=== PATIENT | female | born 1955 | race Caucasian/White ===

== ENCOUNTER 2020-04-08 10:36 | Inpatient (IN) | payer MEDICARE, OTHER ==
[~2020-04-08] VITALS: Ht 157.5 cm; Wt 64.4 kg
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
[2020-04-08] MEDS ORDERED: MAGNESIUM HYDROXIDE 30 ML UDC PO PRN (11:00)
[2020-04-08] MEDS ORDERED: BLOOD SUGAR DIAGNOSTIC 1 EACH STRIP IN ONE (11:00)
[2020-04-08] MEDS ORDERED: ACETAMINOPHEN 325 MG TABLET PO PRN (11:00)
[2020-04-08] MEDS ORDERED: MAG HYDROX/AL HYDROX/SIMETH 30 ML UDC PO PRN (11:00)
[2020-04-08] MEDS ORDERED: DONE10TA44 PO (11:12)
[2020-04-08] MEDS ORDERED: ASPI-1420 PO (11:12)
[2020-04-08] MEDS ORDERED: ATOR40TA PO (11:12)
[2020-04-08] MEDS ORDERED: VALS160T29 PO (11:12)
[2020-04-08] MEDS ORDERED: MEMA28CA5 PO (11:12)
[2020-04-08] MEDS ORDERED: PHEN100C12 PO (11:12)
[2020-04-08] MEDS ORDERED: LEVO50TA8 PO (11:12)
[2020-04-08] MEDS ORDERED: LEVE100023 PO (11:12)
[2020-04-08 11:32] VITALS: BP 159/79
[2020-04-08] MEDS ORDERED: VALSARTAN 40 MG TABLET PO SCH (14:30)
[2020-04-08] MEDS: DONEPEZIL 5 MG TABLET PO SCH (14:57)
[2020-04-08] MEDS: ASPIRIN EC 81 MG TABLET.DR PO SCH (14:58)
[2020-04-08] MEDS: LEVETIRACETAM (250 MG) 250 MG TABLET PO SCH ×2 (14:58→22:03)
[2020-04-08] MEDS: LEVOTHYROXINE SODIUM 50 MCG TABLET PO SCH (14:58)
[2020-04-08] MEDS: VALSARTAN 80 MG TABLET PO SCH (15:05)
[2020-04-08 15:28] LABS: CHOLESTEROL 180 mg/dL (<200); HDL CHOLESTEROL 101 mg/dL (40-60); LDL 60 mg/dL (0-99); TRIGLYCERIDES 76 mg/dL (30-150)
[2020-04-08 16:00] VITALS: BP 104/67
[2020-04-08] MEDS: risperiDONE 0.25 MG TABLET PO SCH (17:31)
[2020-04-08] MEDS: MEMANTINE HCL 5 MG TABLET PO SCH (17:31)
[2020-04-08] MEDS: PHENYTOIN EXTENDED RELEASE 100 MG CAPSULE PO SCH (17:31)
[2020-04-08 20:08] VITALS: BP 110/64
[2020-04-08] MEDS ORDERED: MIRTAZAPINE 15 MG TABLET PO SCH (22:00)
[2020-04-08] MEDS: ATORVASTATIN 40 MG TABLET PO SCH (22:03)
[2020-04-08] MEDS: TEMAZEPAM 7.5 MG CAPSULE PO PRN (22:45)
[2020-04-09] MEDS ORDERED: Z GUARD REMEDY 2 OZ OINT TP PRN (01:30)
--- NOTE | 2020-04-09 05:52 | NUR ---
GPS RN NOTE: PT NEEDS A UA BUT UNABLE TO GIVE URINE SAMPLE AT THIS TIME. WILL ENDORSE TO AM SHIFT.
[2020-04-09 06:27] LABS: BASOPHILS % (AUTO) 0.7 % (0.0-2.0); EOSINOPHILS % (AUTO) 6.1 % (0.0-6.0); HEMATOCRIT 39 % (33-45); HEMOGLOBIN 12.8 g/dL (11.5-14.8); LYMPHOCYTES # (AUTO) 1.1 /CMM (0.8-4.8); LYMPHOCYTES % (AUTO) 29.6 % (20.0-44.0); MEAN CORPUSCULAR HGB CONC 33 g/dl (31.0-36.0); MEAN CORPUSCULAR VOLUME 94 fL (82-100); MONOCYTES # (AUTO) 0.6 /CMM (0.1-1.30); MONOCYTES % (AUTO) 16.6 % (2.0-12.0); NEUTROPHILS # (AUTO) 1.7 /CMM (1.8-8.9); PLATELET COUNT (AUTO) 165 /CMM (150-450); RED BLOOD CELL COUNT(AUTO) 4.15 MIL/uL (4.0-5.2); WHITE BLOOD COUNT (AUTO) 3.7 K/uL (4.3-11.0)
[2020-04-09 06:46] LABS: BILIRUBIN,TOTAL 0.4 mg/dL (0.2-1.0); CALCIUM, SERUM 8.7 mg/dL (8.5-10.1); CREATININE 0.7 mg/dL (0.6-1.3); MAGNESIUM 2.5 mg/dL (1.8-2.4); PHOSPHORUS 3.4 mg/dL (2.5-4.9); POTASSIUM 3.7 mmol/L (3.5-5.1); TOTAL PROTEIN, SERUM 6.5 g/dL (6.4-8.2)
--- NOTE | 2020-04-09 06:55 | NUR ---
GPS RN CLOSING NOTE: PT SLEEPING COMFORTABLY ON BED, NO S/S OF DISTRESS. RESPIRATION EVEN AND UNLABORED WITH EQUAL RISE AND FALL OF THE CHEST. UNABLE TO GET PT URINE SAMPLE FOR UA AT THIS TIME. WILL CONTINUE TO MONITOR AND ENDORSE TO AM SHIFT.
[2020-04-09 06:58] LABS: PHENYTOIN (DILANTIN) 2.9 ug/ml (10.0-20.0)
[2020-04-09 07:00] LABS: THYROID STIMULATING HORMONE 2.392 uIU/mL (0.358-3.74)
[2020-04-09 08:00] VITALS: BP 122/71
[2020-04-09] MEDS: LEVOTHYROXINE SODIUM 50 MCG TABLET PO SCH (08:13)
[2020-04-09] MEDS: PHENYTOIN EXTENDED RELEASE 100 MG CAPSULE PO SCH ×2 (08:32→16:26)
[2020-04-09] MEDS: ASPIRIN EC 81 MG TABLET.DR PO SCH (08:32)
[2020-04-09] MEDS: VALSARTAN 80 MG TABLET PO SCH (08:33)
[2020-04-09] MEDS: DONEPEZIL 5 MG TABLET PO SCH (08:34)
[2020-04-09] MEDS: risperiDONE 0.25 MG TABLET PO SCH ×2 (08:34→16:26)
[2020-04-09] MEDS: LEVETIRACETAM (250 MG) 250 MG TABLET PO SCH ×2 (08:34→21:42)
[2020-04-09] MEDS: MEMANTINE HCL 5 MG TABLET PO SCH ×2 (08:34→16:30)
[2020-04-09 09:07] LABS: BAND % (MANUAL) 7 % (0.0-5.0); EOSINOPHILS % (MANUAL) 7 % (0-4); LYMPHOCYTES % (MANUAL) 27 % (16-48); MONOCYTES % (MANUAL) 15 % (0-11.0); NEUTROPHILS % (MANUAL) 44 (42-76)
[2020-04-09] MEDS: Z GUARD REMEDY 2 OZ OINT TP SCH (09:34)
[2020-04-09 16:00] VITALS: BP 119/65
[2020-04-09 19:16] LABS: APPEARANCE,URINE CLEAR (CLEAR); BILIRUBIN,URINE NEGATIVE (NEGATIVE); BLOOD, URINE TRACE-INTA Ery/uL (NEGATIVE); COLOR,URINE YELLOW (YELLOW); KETONES,URINE TRACE (NEGATIVE); LEUKOCYTE ESTERASE ,URINE TRACE (NEGATIVE); NITRITE, URINE NEGATIVE (NEGATIVE); PH,URINE 5.5 (5.0-8.0); PROTEIN,URINE TRACE mg/dl (NEGATIVE); UGLUCOSE NEGATIVE (NEGATIVE); UROBILINOGEN,URINE 0.2 EU/dL (0.2)
[2020-04-09 19:30] LABS: BACTERIA,URINE 3+ /HPF (None Seen); SQUAMOUS EPITHELIAL CELL,UR 0-2 /HPF (None Seen)
[2020-04-09 20:00] VITALS: BP 126/65
[2020-04-09] MEDS: ATORVASTATIN 40 MG TABLET PO SCH (21:42)
[2020-04-10 08:00] VITALS: BP 132/72
[2020-04-10] MEDS: ASPIRIN EC 81 MG TABLET.DR PO SCH (09:45)
[2020-04-10] MEDS: risperiDONE 0.25 MG TABLET PO SCH ×2 (09:46→17:00)
[2020-04-10] MEDS: PHENYTOIN EXTENDED RELEASE 100 MG CAPSULE PO SCH ×2 (09:46→17:00)
[2020-04-10] MEDS: DONEPEZIL 5 MG TABLET PO SCH (09:46)
[2020-04-10] MEDS: LEVETIRACETAM (250 MG) 250 MG TABLET PO SCH ×2 (09:46→21:34)
[2020-04-10] MEDS: MEMANTINE HCL 5 MG TABLET PO SCH ×2 (09:46→17:00)
[2020-04-10] MEDS: Z GUARD REMEDY 2 OZ OINT TP SCH (09:47)
[2020-04-10] MEDS: VALSARTAN 80 MG TABLET PO SCH (09:47)
[2020-04-10] MEDS: LEVOTHYROXINE SODIUM 50 MCG TABLET PO SCH (09:47)
--- NOTE | 2020-04-10 11:57 | NUR ---
WOUND CARE CONSULT: PT REFUSED SKIN ASSESSMENT AND DENIES HAVING ANY SKIN ISSUES. PER RN, PT IS AMBULATORY AND CONTINENT WITH CURRENT CRUZ SCORE OF 19. WILL SEE PRN.
[2020-04-10] MEDS: LORAZEPAM 0.5 MG TABLET PO PRN ×2 (14:48→20:09)
--- NOTE | 2020-04-10 15:40 | NUR ---
Initial Discharge Plan: Patient currently resides at home [address] [place] [address] ([phone]) lives with her , Ezequiel Jo. Patient would like tot return home upon discharge. SW spoke with pt's , Ezequiel ([phone]) who stated he would like patient to return home and will pick her up at time of discharge. BRANDEE will continue to work with patient, family, and MD to ensure a safe and proper discharge plan.
--- NOTE | 2020-04-10 15:40 | NUR ---
Family Contact: SW spoke with pt's , Ezequiel Jo ([phone]) and discussed treatment and discharge plan. Art stated that will cigar packer and picker the patient and take her home upon discharge. Ezequiel provide this clinical writer with the patient's primary doctor, Dr. Daron Santoro MD Address: [address] [place] [phone] ) and Home Health services [facility] Address: [address] [place] [phone] ). Pt needs a psychiatrist to follow up with after discharge.
[2020-04-10 16:00] VITALS: BP 127/82
--- NOTE | 2020-04-10 17:00 | NUR ---
Patient positive bacteria from urine and had LBM x 3 today, Dr. Garcia made aware, no new order at this time.
[2020-04-10 19:50] VITALS: BP 121/74
[2020-04-10] MEDS: ATORVASTATIN 40 MG TABLET PO SCH (21:34)
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
[2020-04-11 08:00] VITALS: BP 118/77
[2020-04-11] MEDS: LEVOTHYROXINE SODIUM 50 MCG TABLET PO SCH (08:02)
--- NOTE | 2020-04-11 08:48 | NUR ---
Family Contact: SW spoke with patient's daughterJerica ([phone]) regarding patient's treatment plan and length of stay.
[2020-04-11] MEDS: DONEPEZIL 5 MG TABLET PO SCH (09:38)
[2020-04-11] MEDS: risperiDONE 0.25 MG TABLET PO SCH ×3 (09:38→17:03)
[2020-04-11] MEDS: ASPIRIN EC 81 MG TABLET.DR PO SCH (09:38)
[2020-04-11] MEDS: PHENYTOIN EXTENDED RELEASE 100 MG CAPSULE PO SCH ×2 (09:38→17:03)
[2020-04-11] MEDS: LEVETIRACETAM (250 MG) 250 MG TABLET PO SCH ×2 (09:38→21:34)
[2020-04-11] MEDS: MEMANTINE HCL 5 MG TABLET PO SCH ×2 (09:39→17:03)
[2020-04-11] MEDS: VALSARTAN 80 MG TABLET PO SCH (09:39)
[2020-04-11 10:00] VITALS: BP 118/77
[2020-04-11] MEDS: Z GUARD REMEDY 2 OZ OINT TP SCH (10:12)
--- NOTE | 2020-04-11 11:30 | NUR ---
CLEAN CATCH URINE SAMPLE COLLECTED PER DR SMITH'S ORDER AND SEND TO LAB. WILL CONTINUE TO MONITOR
[2020-04-11 12:35] LABS: BASOPHILS % (AUTO) 0.5 % (0.0-2.0); EOSINOPHILS % (AUTO) 1.8 % (0.0-6.0); HEMATOCRIT 43 % (33-45); LYMPHOCYTES # (AUTO) 1.2 /CMM (0.8-4.8); MEAN CORPUSCULAR HGB CONC 32 g/dl (31.0-36.0); MEAN CORPUSCULAR VOLUME 95 fL (82-100); MONOCYTES # (AUTO) 0.9 /CMM (0.1-1.30); MONOCYTES % (AUTO) 16.3 % (2.0-12.0); NEUTROPHILS # (AUTO) 3.1 /CMM (1.8-8.9); NEUTROPHILS % (AUTO) 59.4 % (43.0-81.0); PLATELET COUNT (AUTO) 204 /CMM (150-450); RED BLOOD CELL COUNT(AUTO) 4.55 MIL/uL (4.0-5.2); WHITE BLOOD COUNT (AUTO) 5.3 K/uL (4.3-11.0)
[2020-04-11 12:51] LABS: ALBUMIN 3.8 g/dL (3.4-5.0); BILIRUBIN,TOTAL 0.4 mg/dL (0.2-1.0); CREATININE 0.7 mg/dL (0.6-1.3); MAGNESIUM 2.4 mg/dL (1.8-2.4); POTASSIUM 3.7 mmol/L (3.5-5.1); TOTAL PROTEIN, SERUM 7.8 g/dL (6.4-8.2)
[2020-04-11 13:14] LABS: APPEARANCE,URINE SL CLOUDY (CLEAR); BILIRUBIN,URINE NEGATIVE (NEGATIVE); BLOOD, URINE TRACE-INTA Ery/uL (NEGATIVE); COLOR,URINE DARK YELLO (YELLOW); KETONES,URINE NEGATIVE (NEGATIVE); LEUKOCYTE ESTERASE ,URINE NEGATIVE (NEGATIVE); NITRITE, URINE NEGATIVE (NEGATIVE); PROTEIN,URINE NEGATIVE (NEGATIVE); UGLUCOSE NEGATIVE (NEGATIVE); UROBILINOGEN,URINE 0.2 EU/dL (0.2)
[2020-04-11 13:23] LABS: BACTERIA,URINE Few /HPF (None Seen); RBC,URINE 0-2 /HPF (0-2); SQUAMOUS EPITHELIAL CELL,UR Rare /HPF (None Seen); WBC,URINE 0-2 /HPF (0-3)
[2020-04-11 16:00] VITALS: BP 106/63
--- NOTE | 2020-04-11 18:34 | NUR ---
GPS RN CLOSING NOTES PT AWAKE, SITTING IN DINNING ROOM AT THIS TIME. PT REMAINED STABLE THROUGHOUT SHIFT. PT KEPT CLEAN AND DRY. ALL CARE, NEEDS, MEDICATION AND TREATMENT ADMINISTERED ANTICIPATED PER ORDER. SAFETY PRECAUTION IN PLACE AND MAINTAINED AT ALL TIMES. BED IN LOWEST LOCKED POSITION, HOB ELEVATED, RAILS UP, CALL LIGHT WITHIN REACH. WILL ENDORSE TO COIL TAPER NURSE FOR JOSE
--- NOTE | 2020-04-11 19:12 | NUR ---
PER MD'S NOTE, REPEAT DILANTIN LEVEL IN 3-4 DAYS AFTER PT STARTS TAKING THE MED. DILANTIN LEVEL LAB ORDER IN PLACE FOR TOMORROW. WILL CONTINUE TO MONITOR AND CONTINUE WITH PLAN OF CARE
[2020-04-11 20:48] VITALS: BP 106/66
[2020-04-11] MEDS: ATORVASTATIN 40 MG TABLET PO SCH (21:34)
[2020-04-11] MEDS: LORAZEPAM 0.5 MG TABLET PO PRN (22:32)
--- NOTE | 2020-04-11 22:39 | NUR ---
GPS RN NOTE: ANXIETY PT WAS FEELING ANXIOUS, ADMINISTERED PRN ATIVAN @ 2232, WILL REASSESS AND CONTINUE TO MONITOR Q15 MIN FOR SAFETY AND BEHAVIOR.
[2020-04-12] MEDS ORDERED: OLANZAPINE 10 MG VIAL IM ONE (00:30)
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
[2020-04-12] MEDS: LEVOTHYROXINE SODIUM 50 MCG TABLET PO SCH (07:50)
[2020-04-12 08:00] VITALS: BP 114/80
[2020-04-12] MEDS: ASPIRIN EC 81 MG TABLET.DR PO SCH (09:28)
[2020-04-12] MEDS: risperiDONE 0.25 MG TABLET PO SCH ×3 (09:28→17:10)
[2020-04-12] MEDS: PHENYTOIN EXTENDED RELEASE 100 MG CAPSULE PO SCH ×2 (09:28→17:10)
[2020-04-12] MEDS: MEMANTINE HCL 5 MG TABLET PO SCH ×2 (09:28→17:10)
[2020-04-12] MEDS: DONEPEZIL 5 MG TABLET PO SCH (09:28)
[2020-04-12] MEDS: LEVETIRACETAM (250 MG) 250 MG TABLET PO SCH ×2 (09:28→20:56)
[2020-04-12] MEDS: Z GUARD REMEDY 2 OZ OINT TP SCH (09:29)
[2020-04-12] MEDS: VALSARTAN 80 MG TABLET PO SCH (09:29)
--- NOTE | 2020-04-12 09:35 | NUR ---
SW Brief Individual Counseling: fabric and textile factory worker met with patient to provide brief individual counseling. Patient presented with disorganized thought process and labile mood. fabric and textile factory worker prompted patient to express how she is feeling, however patient stared at this time field underwriter with a blunted affect and did not respond appropriately.
--- NOTE | 2020-04-12 12:04 | NUR ---
BRANDEE Coordination of Care: SW referred patient for outpatient psychiatric services with Dr. Arun Hancock MD [address] [address] ([phone]) and will make an appointment prior to discharge.
[2020-04-12 16:00] VITALS: BP_SYST 105; BP_SYST 94; BP_DIAS 59; BP_DIAS 61
[2020-04-12 20:32] VITALS: BP 95/57
[2020-04-12] MEDS: ATORVASTATIN 40 MG TABLET PO SCH (21:18)
[2020-04-12 22:00] VITALS: BP 110/70
[2020-04-13 07:52] VITALS: BP 133/66
[2020-04-13 08:00] VITALS: BP 133/66
[2020-04-13] MEDS: PHENYTOIN EXTENDED RELEASE 100 MG CAPSULE PO SCH ×2 (08:19→16:57)
[2020-04-13] MEDS: MEMANTINE HCL 5 MG TABLET PO SCH ×2 (08:19→16:57)
[2020-04-13] MEDS: VALSARTAN 80 MG TABLET PO SCH (08:19)
[2020-04-13] MEDS: LEVOTHYROXINE SODIUM 50 MCG TABLET PO SCH (08:19)
[2020-04-13] MEDS: ASPIRIN EC 81 MG TABLET.DR PO SCH (08:19)
[2020-04-13] MEDS: risperiDONE 0.25 MG TABLET PO SCH ×2 (08:20→12:30)
[2020-04-13] MEDS: DONEPEZIL 5 MG TABLET PO SCH (08:20)
[2020-04-13] MEDS: LEVETIRACETAM (250 MG) 250 MG TABLET PO SCH ×2 (08:20→21:15)
[2020-04-13] MEDS: Z GUARD REMEDY 2 OZ OINT TP SCH (08:35)
--- NOTE | 2020-04-13 13:20 | NUR ---
RAGHUCO: FOLLOWED UP PTStephie LAYTON WILL COME.
[2020-04-13 16:00] VITALS: BP 101/58
[2020-04-13 19:55] VITALS: BP 101/52
[2020-04-13] MEDS: ATORVASTATIN 40 MG TABLET PO SCH (21:15)
[2020-04-14] MEDS: LORAZEPAM 0.5 MG TABLET PO PRN (06:13)
--- NOTE | 2020-04-14 06:16 | NUR ---
GPS RN NOTE: ANXIETY PT WAS FEELING RESTLESS AND ANXIOUS REQUESTED SOMETHING FOR IT, ADMINISTERED ATIVAN PRN @0615. WILL REASSESS AND CONTINUE TO MONITOR Q15MIN FOR SAFETY AND BEHAVIOR.
[2020-04-14] MEDS: LEVOTHYROXINE SODIUM 50 MCG TABLET PO SCH (06:31)
[2020-04-14 08:00] VITALS: BP 115/72
[2020-04-14] MEDS: VALSARTAN 80 MG TABLET PO SCH (09:00)
[2020-04-14] MEDS ORDERED: risperiDONE 0.25 MG TABLET PO SCH (09:00)
[2020-04-14] MEDS: MEMANTINE HCL 5 MG TABLET PO SCH ×2 (09:40→17:57)
[2020-04-14] MEDS: LEVETIRACETAM (250 MG) 250 MG TABLET PO SCH ×2 (09:40→21:00)
[2020-04-14] MEDS: ASPIRIN EC 81 MG TABLET.DR PO SCH (09:40)
[2020-04-14] MEDS: DONEPEZIL 5 MG TABLET PO SCH (09:40)
[2020-04-14] MEDS: PHENYTOIN EXTENDED RELEASE 100 MG CAPSULE PO SCH ×2 (09:41→17:57)
--- NOTE | 2020-04-14 11:59 | NUR ---
Family Contact: SW spoke with patient's Art ([phone]) and confirmed discharge plan for Friday back home. Art stated he will medicinal plant picker the patient and take her home at 10AM.
[2020-04-14] MEDS: Z GUARD REMEDY 2 OZ OINT TP SCH (14:05)
[2020-04-14 16:00] VITALS: BP 110/66
--- NOTE | 2020-04-14 18:00 | NUR ---
needy and anxious,but med compliant.
[2020-04-14 19:32] VITALS: BP 114/64
[2020-04-14] MEDS: ATORVASTATIN 40 MG TABLET PO SCH (21:00)
[2020-04-14] MEDS: TEMAZEPAM 7.5 MG CAPSULE PO PRN (22:31)
--- NOTE | 2020-04-14 22:31 | NUR ---
GPS-RN NOTE: INSOMNIA PATIENT C/O UNABLE TO SLEEP. ADMINISTERED RESTORIL 7.5MG PO ORDERED. WILL REASSESS AND WILL CONTINUE TO MONITOR FOR SAFETY.
[2020-04-15] MEDS: LORAZEPAM 0.5 MG TABLET PO PRN (00:02)
--- NOTE | 2020-04-15 00:02 | NUR ---
GPS-RN NOTE: ANXIETY PATIENT IS ANXIOUS AND RESTLESS. ADMINISTERED ATIVAN 0.5MG PO ORDERED. WILL CONTINUE TO MONITOR FOR PATIENT'S SAFETY.
--- NOTE | 2020-04-15 04:06 | NUR ---
GPS-RN NOTE: C/O LOWER BACK PAIN PATIENT C/O LOWER BACK PAIN. PS 10/25. ADMINISTERED ACETAMINOPHEN 650MG PO ORDERED. WILL CONTINUE TO REASSESS.
[2020-04-15 08:00] VITALS: BP 123/78
[2020-04-15] MEDS: VALSARTAN 80 MG TABLET PO SCH (08:25)
[2020-04-15] MEDS: LEVOTHYROXINE SODIUM 50 MCG TABLET PO SCH (08:25)
[2020-04-15] MEDS: PHENYTOIN EXTENDED RELEASE 100 MG CAPSULE PO SCH ×2 (08:26→16:38)
[2020-04-15] MEDS: ASPIRIN EC 81 MG TABLET.DR PO SCH (08:26)
[2020-04-15] MEDS: MEMANTINE HCL 5 MG TABLET PO SCH ×2 (08:26→16:38)
[2020-04-15] MEDS: DONEPEZIL 5 MG TABLET PO SCH (08:26)
[2020-04-15] MEDS: LEVETIRACETAM (250 MG) 250 MG TABLET PO SCH ×2 (08:26→21:10)
[2020-04-15] MEDS: Z GUARD REMEDY 2 OZ OINT TP SCH (09:00)
[2020-04-15 16:00] VITALS: BP 136/61
[2020-04-15 20:29] VITALS: BP 112/69
[2020-04-15] MEDS: ATORVASTATIN 40 MG TABLET PO SCH (21:10)
[2020-04-15] MEDS: risperiDONE 0.25 MG TABLET PO SCH (21:10)
[2020-04-15] MEDS: TEMAZEPAM 7.5 MG CAPSULE PO PRN (22:16)
--- NOTE | 2020-04-15 22:36 | NUR ---
GPS RN NOTE: INSOMNIA PT STATED "I NEED SOMETHING TO KNOCK ME OUT I WANT TO GET GOOD SLEEP TONIGHT WHAT CAN I HAVE. ADMIN RESTORIL PRN @6512. WILL REASSESS AND CONTINUE TO MONITOR Q15MIN FOR SAFETY AND BEHAVIOR.
[2020-04-16] MEDS: LORAZEPAM 0.5 MG TABLET PO PRN (05:10)
--- NOTE | 2020-04-16 05:14 | NUR ---
GPS RN NOTE: ANXIETY PT WAS FEELING RESTLESS, ANXIOUS, INABILITY TO SIT STILL AND SLEEP. ASKED IF SHED LIKE AN ATIVAN SHE STATED "YEAH WHATEVER WILL HELP" ADMINISTERED ATIVAN PRN @0511. WILL REASSESS AND CONTINUE TO MONITOR Q15MIN FOR SAFETY AND BEHAVIOR.
[2020-04-16 08:00] VITALS: BP 112/63
[2020-04-16] MEDS: VALSARTAN 80 MG TABLET PO SCH (09:00)
[2020-04-16] MEDS: LEVOTHYROXINE SODIUM 50 MCG TABLET PO SCH (09:35)
[2020-04-16] MEDS: DONEPEZIL 5 MG TABLET PO SCH (09:35)
[2020-04-16] MEDS: MEMANTINE HCL 5 MG TABLET PO SCH ×2 (09:35→17:03)
[2020-04-16] MEDS: PHENYTOIN EXTENDED RELEASE 100 MG CAPSULE PO SCH ×2 (09:35→17:03)
[2020-04-16] MEDS: ASPIRIN EC 81 MG TABLET.DR PO SCH (09:35)
[2020-04-16] MEDS: LEVETIRACETAM (250 MG) 250 MG TABLET PO SCH ×2 (09:36→21:24)
[2020-04-16] MEDS: Z GUARD REMEDY 2 OZ OINT TP SCH (09:37)
[2020-04-16 16:00] VITALS: BP 137/67
[2020-04-16 20:36] VITALS: BP 101/57
[2020-04-16] MEDS: risperiDONE 0.25 MG TABLET PO SCH (21:24)
[2020-04-16] MEDS: ATORVASTATIN 40 MG TABLET PO SCH (21:24)
--- NOTE | 2020-04-17 07:30 | NUR ---
GPR RN NOTE RECEIVED PT IN BED. PT IS A/O X2. CALM, COOPERATIVE, ISOLATIVE, DEPRESSED, ANXIOUS. PT DENIES SI/HI AT THIS TIME. NO CARDIAC OR RESPIRATORY DISTRESS NOTED. NO SOB NOTED SATURATING WELL ON ROOM AIR. ENVIRONMENTAL CHECK WAS DONE, BED IN LOCKED AND LOWEST POSITION, SIDE RAILS UP X2. WILL CONTINUE TO MONITOR Q15MIN FOR SAFETY AND BEHAVIOR.
[2020-04-17 08:00] VITALS: BP 123/80
[2020-04-17] MEDS: ASPIRIN EC 81 MG TABLET.DR PO SCH (08:22)
[2020-04-17] MEDS: LEVETIRACETAM (250 MG) 250 MG TABLET PO SCH ×2 (08:22→21:10)
[2020-04-17] MEDS: VALSARTAN 80 MG TABLET PO SCH (08:22)
[2020-04-17] MEDS: LEVOTHYROXINE SODIUM 50 MCG TABLET PO SCH (08:23)
[2020-04-17] MEDS: MEMANTINE HCL 5 MG TABLET PO SCH ×2 (08:23→16:23)
[2020-04-17] MEDS: PHENYTOIN EXTENDED RELEASE 100 MG CAPSULE PO SCH ×2 (08:23→16:23)
[2020-04-17] MEDS: DONEPEZIL 5 MG TABLET PO SCH (08:25)
[2020-04-17] MEDS: Z GUARD REMEDY 2 OZ OINT TP SCH (08:25)
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
--- NOTE | 2020-04-17 09:41 | NUR ---
FAMILY CONTACT: SW spoke with patient's Art ([phone]) and confirmed discharge plan for Friday04/18/20 back home. Art stated he will orange picking supervisor the patient and take her home at 10AM.
--- NOTE | 2020-04-17 14:49 | NUR ---
COORDINATION OF CARE: SW contacted psychiatrist Dr. Raad Zacarias MD [address] [address] ([phone]) [address] [address] ([phone]) and scheduled a follow up appointment for 04/19/20 at 4:00pm.
--- NOTE | 2020-04-17 15:04 | NUR ---
COORDINATION OF CARE: SW contacted Automotive Tire Worker: Dr. Daron Santoro MD Address: [address] [place] [phone] ) and spoke with Dee Dee, receptionist/telephone operator who stated pt needs to personally call so a tele health appointment can be scheduled.
--- NOTE | 2020-04-17 15:10 | NUR ---
COORDINATION OF CARE: SW contacted Home Health services [facility] Address: [address] [place] [phone] ) to inform them of pts discharge on Friday04/18/20 back home.
[2020-04-17 16:00] VITALS: BP 103/53
--- NOTE | 2020-04-17 18:57 | NUR ---
GPS CLOSING NOTE PT IN BED. PT IS A/O X2. CALM, COOPERATIVE, ISOLATIVE, DEPRESSED, ANXIOUS. PT DENIES SI/HI AT THIS TIME. NO CARDIAC OR RESPIRATORY DISTRESS NOTED. NO SOB NOTED SATURATING WELL ON ROOM AIR. PT COMPLIANT WITH ALL MEDS TODAY. NO BEHAVIORAL ISSUES NOTED. CALM AND COOPERATIVE. ALL NEEDS MET AND ATTENDED.ENVIRONMENTAL CHECK WAS DONE, BED IN LOCKED AND LOWEST POSITION, SIDE RAILS UP X2. WILL CONTINUE TO MONITOR Q15MIN FOR SAFETY AND BEHAVIOR.
[2020-04-17 19:59] VITALS: BP 104/61
[2020-04-17] MEDS: ATORVASTATIN 40 MG TABLET PO SCH (21:10)
[2020-04-18] MEDS: TEMAZEPAM 7.5 MG CAPSULE PO PRN (01:08)
--- NOTE | 2020-04-18 01:11 | NUR ---
GPS RN NOTES: INSOMNIA UPON DOING ROUNDS MA YELLING OUT, "NURSE. NURSE." PT STATED SHE CAN NOT SLEEP. AND REQUESTED SLEEPING MEDICATION." OFFERED RESTORIL 7.5 MG PO PRN ORDERED. PT AGREED AND TOLERATED MEDICATION WELL. CONTINUE TO MONITOR.
[2020-04-18] MEDS: LEVOTHYROXINE SODIUM 50 MCG TABLET PO SCH (07:43)
[2020-04-18 08:00] VITALS: BP 112/77
[2020-04-18 08:04] VITALS: BP 121/74
[2020-04-18] MEDS: LEVETIRACETAM (250 MG) 250 MG TABLET PO SCH (08:04)
[2020-04-18] MEDS: VALSARTAN 80 MG TABLET PO SCH (08:04)
[2020-04-18] MEDS: MEMANTINE HCL 5 MG TABLET PO SCH (08:04)
[2020-04-18] MEDS: PHENYTOIN EXTENDED RELEASE 100 MG CAPSULE PO SCH (08:05)
[2020-04-18] MEDS: DONEPEZIL 5 MG TABLET PO SCH (08:05)
[2020-04-18] MEDS: ASPIRIN EC 81 MG TABLET.DR PO SCH (08:05)
[2020-04-18] MEDS: Z GUARD REMEDY 2 OZ OINT TP SCH (08:06)
--- NOTE | 2020-04-18 09:43 | NUR ---
DISCHARGE NOTE: Pt will be discharged at 10:00am via private vehicle home [address] [facility] [place] [address] ([phone]). Pt's , Ezequiel ([phone]) and patient's daughter, Jerica ([phone]) will pick pt up and transport home. Pts mood is euthymic with congruent affect. Pt denied visual/auditory hallucinations and denied suicidal/homicidal ideation. Pt is alert and oriented x1; only to self, pt is otherwise confused and disorganized. Pt is appropriately dressed and groomed. Pt will follow up with Psychiatrist: Dr. Raad Zacarias [address] [address] ([phone]) follow up appointment for 04/19/20 at 4:00pm. BRANDEE contacted Casting Machine Control Board Operator: Dr. Daron Santoro MD Address: [address] [place] [address] ) and spoke with Dee Dee, studio receptionist who stated pt needs to personally call so a tele health appointment can be scheduled. BRANDEE contacted Home Health services [facility] Address: [address] [place] [address] ) to inform them of pts discharge on Friday04/18/20 back home. The multidisciplinary exit care form was done, printed, signed, and given to the patient.
--- NOTE | 2020-04-18 12:37 | NUR ---
GPS/RN - Discharge Note Frannie Jo is a 64 year old female, discharged home in stable condition. Reviewed discharge instructions with Ezequiel and daughter Jerica both verbalized full understanding. Family was advised to have patient follow up with her PMD and psychiatrist as scheduled. Patient is compliant with medications, cooperative with treatment plans. Patient is alert and oriented x 1, confused, disoriented, calm, denies pain, not in any form of distress, afebrile. Patient denies suicidal ideation or homicidal ideation, no visual or auditory hallucinations at this time and instructed to go to the nearest ER if developing SI/HI. Patient refused pictures to be taken. Medications reconciled with Dr. Cowan and Dr. Hodges. Educated family about after care plan and copy provided. Returned all personal belongings to patient and she deny any missing items. Patient left the unit at 12:25 with family via [employer] transportation.
== END 2020-04-18 12:25 | disposition home or self-care (01) | DRG 885 ==
LOC: GPS 10:36
PROVIDERS: ADMIT Psychiatry & Neurology Psychosomatic Medicine
DX: F29 Unspecified psychosis not due to a substance or known physiological condition (principal); F01.50 Vascular dementia, unspecified severity, without behavioral disturbance, psychotic disturbance, mood disturbance, and anxiety; I10 Essential (primary) hypertension; E78.5 Hyperlipidemia, unspecified; G40.909 Epilepsy, unspecified, not intractable, without status epilepticus; F25.9 Schizoaffective disorder, unspecified
CPT/HCPCS: 36415; 80053-TC; 80061-TC; 80185-TC; 81000-TC; 82962-TC; 83036-TC; 83735-TC; 84100-TC; 84443-TC; 85025-TC; 87081-TC; 87086-TC; 97116-TC; 97530-TC; J3490